=== PATIENT | male | born 1970 | race Two or more races ===

== ENCOUNTER 2024-09-04 09:13 | Emergency (ER) | payer OTHER ==
[~2024-09-04] VITALS: Ht 172.7 cm; Wt 68.0 kg
[2024-09-04] MEDS ORDERED: KETOROLAC TROMETHAMINE 60 MG VIAL IM STA (10:50)
[2024-09-04] MEDS ORDERED: KETOROLAC TROMETHAMINE 60 MG VIAL IM ONE (12:26)
== END 2024-09-04 14:49 | disposition home or self-care (01) ==
LOC: ER 09:16
DX: M25.561 Pain in right knee (principal)